=== PATIENT | male | born 1995 | race Caucasian/White ===

== ENCOUNTER 2021-02-25 07:21 | Outpatient (CLI) | payer BC ==
[2021-02-25 09:21] LABS: BASOPHILS % (AUTO) 0.5 % (0-1); EOSINOPHILS # (AUTO) 0.2 X10'3 (0-0.9); EOSINOPHILS % (AUTO) 2.5 % (0-6); HEMATOCRIT 46.6 % (42.0-52.0); HEMOGLOBIN 15.9 g/dl (14.0-17.9); LYMPHOCYTES % (AUTO) 31.7 % (21-51); MEAN CORPUSCULAR HEMOGLOBIN 30.3 PG (27.0-31.0); MEAN CORPUSCULAR HGB CONC 34.2 g/dL (33.0-36.5); MEAN CORPUSCULAR VOLUME 88.7 FL (78-98); MONOCYTES # (AUTO) 0.5 X10'3 (0-0.9); MONOCYTES % (AUTO) 7.3 % (2-12); NEUTROPHILS # (AUTO) 3.7 X10'3 (1.8-7.7); PLATELET COUNT 238 X10'3 (140-440); RED BLOOD COUNT 5.25 X10'6 (4.70-6.10); RED CELL DISTRIBUTION WIDTH 13.1 % (11.5-14.5); WHITE BLOOD COUNT 6.3 X10'3 (4.5-11.0)
[2021-02-25 09:33] LABS: ALANINE AMINOTRANSFERASE 25 U/L (12-78); ALBUMIN 4.6 G/DL (3.4-5.0); ALBUMIN/GLOBULIN RATIO 1.4 (1.1-1.5); ALKALINE PHOSPHATASE 86 IU/L (46-116); ANION GAP 9 (8-16); ASPARTATE AMINO TRANSFERASE 15 U/L (10-37); BILIRUBIN,TOTAL 0.5 MG/DL (0.1-1.0); BLOOD UREA NITROGEN 14 MG/DL (7-18); BUN/CREATININE RATIO 14.1 (5.4-32.0); CALCIUM 9.2 MG/DL (8.5-10.1); CHLORIDE 106 MMOL/L (99-107); CREATININE 0.99 MG/DL (0.60-1.10); GLUCOSE 93 MG/DL (70-104); POTASSIUM 4.2 MMOL/L (3.5-5.1); SODIUM 142 MMOL/L (135-145); TOTAL CARBON DIOXIDE 27.5 MMOL/L (24-32); eGFR > 90 ML/MIN
[2021-02-25 10:38] LABS: RHEUM FACTOR QUAL REFLEX TITER NEGATIVE (Neg)
[2021-02-26 11:22] LABS: ANTI-DSDNA ANTIBODIES <1 IU/mL (0-9); ANTINUCLEAR ANTIBODIES Negative (Negative); COMPLEMENT C3, SERUM 117 mg/dL (82-167); COMPLEMENT C4, SERUM 17 mg/dL (12-38); THYROID PEROXIDASE AB 9 IU/mL (0-34)
== END 2021-02-25 23:59 | disposition home or self-care (01) ==
LOC: RAD 07:21
PROVIDERS: ATTEND Family Medicine
DX: N13.2 Hydronephrosis with renal and ureteral calculous obstruction (principal); R10.9 Unspecified abdominal pain; R06.02 Shortness of breath; R82.998 Other abnormal findings in urine
CPT/HCPCS: 36415; 76700; 76857; 80053; 85025; 86038; 86160; 86200; 86235; 86256; 86376; 86430; 88271; 88275

== ENCOUNTER 2021-03-27 06:29 | Inpatient (IN) | payer BC ==
[~2021-03-27] VITALS: Ht 177.8 cm; Wt 90.9 kg
[2021-03-27 09:01] LABS: CLARITY,URINE CLEAR (Clear); COLOR,URINE YELLOW (Yellow); GLUCOSE, URINE NEGATIVE (Neg); KETONES,URINE NEGATIVE (Neg); LEUKOCYTE ESTERASE ,URINE NEGATIVE (Neg); NITRITES, URINE NEGATIVE (Neg); OCCULT BLOOD,URINE LARGE (Neg); PROTEIN,URINE 100 mg/dl (Neg); UA COLLECTION TYPE VOIDED; UROBILINOGEN,URINE 0.2 E.U/dL (0.2-1.0)
[2021-03-27 09:07] LABS: BACTERIA,URINE NONE SEEN /HPF (Neg); MUCUS STRANDS NONE SEEN /LPF (Neg); SQUAMOUS EPITHELIAL CELL,UR NONE SEEN /LPF (FEW); WBC,URINE 0-4 /HPF (0-4)
[2021-03-27 10:26] LABS: ALANINE AMINOTRANSFERASE 432 U/L (12-78); ALBUMIN 4.4 G/DL (3.4-5.0); ALBUMIN/GLOBULIN RATIO 1.3 (1.1-1.5); ALKALINE PHOSPHATASE 89 IU/L (46-116); ANION GAP 10 (8-16); BILIRUBIN,TOTAL 1.2 MG/DL (0.1-1.0); BLOOD UREA NITROGEN 16 MG/DL (7-18); BUN/CREATININE RATIO 16.2 (5.4-32.0); CALCIUM 9.3 MG/DL (8.5-10.1); CHLORIDE 104 MMOL/L (99-107); CREATININE 0.99 MG/DL (0.60-1.10); GLUCOSE 82 MG/DL (70-104); POTASSIUM 4.3 MMOL/L (3.5-5.1); SODIUM 140 MMOL/L (135-145); TOTAL CARBON DIOXIDE 25.6 MMOL/L (24-32); TOTAL PROTEIN 7.9 G/DL (6.4-8.2); eGFR > 90 ML/MIN
[2021-03-27 10:29] LABS: BASOPHILS % (AUTO) 0.3 % (0-1); EOSINOPHILS # (AUTO) 0.1 X10'3 (0-0.9); EOSINOPHILS % (AUTO) 0.8 % (0-6); HEMATOCRIT 45.8 % (42.0-52.0); HEMOGLOBIN 16.1 g/dl (14.0-17.9); LYMPHOCYTES % (AUTO) 26.7 % (21-51); MEAN CORPUSCULAR HEMOGLOBIN 30.5 PG (27.0-31.0); MEAN CORPUSCULAR HGB CONC 35.1 g/dL (33.0-36.5); MEAN CORPUSCULAR VOLUME 86.8 FL (78-98); MEAN PLATELET VOLUME 9.3 FL (7.4-10.4); MONOCYTES # (AUTO) 0.8 X10'3 (0-0.9); MONOCYTES % (AUTO) 10.3 % (2-12); NEUTROPHILS # (AUTO) 4.7 X10'3 (1.8-7.7); NEUTROPHILS % (AUTO) 61.9 % (42-75); PLATELET COUNT 202 X10'3 (140-440); RED BLOOD COUNT 5.28 X10'6 (4.70-6.10); RED CELL DISTRIBUTION WIDTH 12.9 % (11.5-14.5); WHITE BLOOD COUNT 7.7 X10'3 (4.5-11.0)
[2021-03-27 11:02] LABS: ASPARTATE AMINO TRANSFERASE 1178 U/L (10-37); CREATINE KINASE 57177 U/L (39-308)
[2021-03-27] MEDS ORDERED: normal saline 1000ML IV soln IVB ONE (11:10)
--- NOTE | 2021-03-27 11:10 | NUR ---
Pt is awake and alert. C/O pain in B biceps area.
[2021-03-27] MEDS ORDERED: ondansetron/PF 4mg/2ml inj IV PRN (11:40)
[2021-03-27] MEDS ORDERED: mag hydrox/Alum hydrox/simeth 30ml oral suspension PO PRN (11:40)
[2021-03-27] MEDS ORDERED: traMADol 50MG tablet PO PRN (11:40)
[2021-03-27] MEDS ORDERED: HYDROcodone/acetaminophen 5mg/325mg tablet PO PRN (11:40)
[2021-03-27] MEDS ORDERED: morphine 2 MG/ML inj. syringe IV PRN (11:40)
[2021-03-27] MEDS ORDERED: magnesium hydroxide 30ml (MOM) UD suspension PO PRN (11:40)
[2021-03-27] MEDS ORDERED: acetaminophen 325mg tablet PO PRN ×2 (11:40)
[2021-03-27] MEDS: normal saline 1000ml 1,000 ML IV SCH ×2 (12:15→22:27)
[2021-03-27] MEDS: morphine 2 MG/ML inj. syringe IV PRN ×3 (12:31→22:21)
[2021-03-27 18:00] VITALS: BP 153/75
--- NOTE | 2021-03-27 19:19 | NUR ---
Report given to LUAN Aguilar on the Surg floor.
[2021-03-27] MEDS: docusate sod 100mg capsule PO SCH (20:44)
[2021-03-28 00:11] VITALS: BP 125/79
[2021-03-28] MEDS: morphine 2 MG/ML inj. syringe IV PRN ×3 (03:02→22:36)
[2021-03-28 06:40] LABS: BASOPHILS % (AUTO) 0.4 % (0-1); EOSINOPHILS # (AUTO) 0.1 X10'3 (0-0.9); EOSINOPHILS % (AUTO) 1.4 % (0-6); HEMATOCRIT 42.7 % (42.0-52.0); HEMOGLOBIN 14.5 g/dl (14.0-17.9); LYMPHOCYTES # (AUTO) 1.9 X10'3 (1.1-4.8); LYMPHOCYTES % (AUTO) 29.5 % (21-51); MEAN CORPUSCULAR HEMOGLOBIN 30.3 PG (27.0-31.0); MEAN CORPUSCULAR VOLUME 89.2 FL (78-98); MEAN PLATELET VOLUME 9.5 FL (7.4-10.4); MONOCYTES # (AUTO) 0.8 X10'3 (0-0.9); MONOCYTES % (AUTO) 11.8 % (2-12); NEUTROPHILS # (AUTO) 3.6 X10'3 (1.8-7.7); NEUTROPHILS % (AUTO) 56.9 % (42-75); PLATELET COUNT 190 X10'3 (140-440); RED BLOOD COUNT 4.78 X10'6 (4.70-6.10); RED CELL DISTRIBUTION WIDTH 12.6 % (11.5-14.5); WHITE BLOOD COUNT 6.4 X10'3 (4.5-11.0)
--- NOTE | 2021-03-28 06:43 | NUR ---
I have received report from Jeff ROLAND and had the opportunity to ask questions and assume patient care.
[2021-03-28 07:24] LABS: ALANINE AMINOTRANSFERASE 404 U/L (12-78); ALBUMIN 3.7 G/DL (3.4-5.0); ALBUMIN/GLOBULIN RATIO 1.1 (1.1-1.5); ALKALINE PHOSPHATASE 80 IU/L (46-116); ANION GAP 11 (8-16); BLOOD UREA NITROGEN 12 MG/DL (7-18); BUN/CREATININE RATIO 12.5 (5.4-32.0); CHLORIDE 107 MMOL/L (99-107); CREATININE 0.96 MG/DL (0.60-1.10); GLUCOSE 82 MG/DL (70-104); POTASSIUM 4.1 MMOL/L (3.5-5.1); SODIUM 144 MMOL/L (135-145); TOTAL PROTEIN 7.2 G/DL (6.4-8.2); eGFR > 90 ML/MIN
[2021-03-28] MEDS: normal saline 1000ml 1,000 ML IV SCH ×2 (07:40→15:20)
[2021-03-28 07:43] LABS: CREATINE KINASE 69056 U/L (39-308)
[2021-03-28 07:44] LABS: ASPARTATE AMINO TRANSFERASE 1209 U/L (10-37)
[2021-03-28 08:00] VITALS: BP 137/77
[2021-03-28] MEDS: docusate sod 100mg capsule PO SCH ×2 (09:09→19:50)
[2021-03-28 11:00] VITALS: BP 142/86
[2021-03-28 18:00] VITALS: BP 161/95
[2021-03-28 18:05] VITALS: BP 153/99
--- NOTE | 2021-03-28 18:59 | NUR ---
Patient in room [facility]. I have received report from Shannen ROLAND and had the opportunity to ask questions and assume patient care.
[2021-03-29 01:40] VITALS: BP 156/75
[2021-03-29] MEDS: normal saline 1000ml 1,000 ML IV SCH ×2 (03:40→10:58)
[2021-03-29 06:49] LABS: BASOPHILS % (AUTO) 0.2 % (0-1); EOSINOPHILS # (AUTO) 0.1 X10'3 (0-0.9); EOSINOPHILS % (AUTO) 1.1 % (0-6); HEMATOCRIT 42.7 % (42.0-52.0); HEMOGLOBIN 14.8 g/dl (14.0-17.9); LYMPHOCYTES % (AUTO) 23.7 % (21-51); MEAN CORPUSCULAR HEMOGLOBIN 30.3 PG (27.0-31.0); MEAN CORPUSCULAR HGB CONC 34.7 g/dL (33.0-36.5); MEAN CORPUSCULAR VOLUME 87.2 FL (78-98); MEAN PLATELET VOLUME 8.9 FL (7.4-10.4); MONOCYTES # (AUTO) 0.8 X10'3 (0-0.9); MONOCYTES % (AUTO) 8.9 % (2-12); NEUTROPHILS # (AUTO) 5.7 X10'3 (1.8-7.7); NEUTROPHILS % (AUTO) 66.1 % (42-75); PLATELET COUNT 212 X10'3 (140-440); RED CELL DISTRIBUTION WIDTH 12.7 % (11.5-14.5); WHITE BLOOD COUNT 8.6 X10'3 (4.5-11.0)
--- NOTE | 2021-03-29 06:56 | NUR ---
Problems reprioritized. Patient report given, questions answered & plan of care reviewed with Anastasiya ROLAND.
[2021-03-29 07:00] VITALS: BP 133/48
[2021-03-29 07:08] LABS: ALANINE AMINOTRANSFERASE 426 U/L (12-78); ALBUMIN/GLOBULIN RATIO 1.2 (1.1-1.5); ALKALINE PHOSPHATASE 86 IU/L (46-116); ANION GAP 4 (8-16); ASPARTATE AMINO TRANSFERASE 930 U/L (10-37); BILIRUBIN,TOTAL 0.9 MG/DL (0.1-1.0); BLOOD UREA NITROGEN 12 MG/DL (7-18); CALCIUM 9.5 MG/DL (8.5-10.1); CHLORIDE 105 MMOL/L (99-107); GLUCOSE 86 MG/DL (70-104); POTASSIUM 3.9 MMOL/L (3.5-5.1); SODIUM 137 MMOL/L (135-145); TOTAL CARBON DIOXIDE 27.7 MMOL/L (24-32); TOTAL PROTEIN 7.3 G/DL (6.4-8.2); eGFR 90 ML/MIN
[2021-03-29 07:22] LABS: CREATINE KINASE 44848 U/L (39-308)
[2021-03-29] MEDS: docusate sod 100mg capsule PO SCH (07:33)
[2021-03-29 10:53] VITALS: BP 118/72
[2021-03-29] MEDS ORDERED: HYDR-3965 PO (11:30)
--- NOTE | 2021-03-29 12:20 | NUR ---
Patient discharge reviewed with patient. Patient verbalized understanding. Patient IV DC cannula intact. Patient states he has all of his belongings. Patient taken to vehicle in wheelchair where family was waiting to transport him home.
== END 2021-03-29 12:47 | disposition home or self-care (01) | DRG 558 ==
LOC: ER 06:30 → ED HOLD 11:42 → SUR 3N 19:30
PROVIDERS: ADMIT Internal Medicine; ATTEND Internal Medicine
DX: M62.82 Rhabdomyolysis (principal); F12.90 Cannabis use, unspecified, uncomplicated; R31.9 Hematuria, unspecified; R74.01 Elevation of levels of liver transaminase levels; R74.8 Abnormal levels of other serum enzymes; Z88.2 Allergy status to sulfonamides
CPT/HCPCS: 36415; 80053; 81001; 82550; 85025; 87081; 99285; G0378; J2270; J2405; J7030

== ENCOUNTER 2021-03-30 12:13 | Outpatient (CLI) | payer BC ==
[~2021-03-30 12:13] MED LIST: HYDR-3965 PO
[2021-03-30 13:41] LABS: ALANINE AMINOTRANSFERASE 413 U/L (12-78); ALBUMIN 4.1 G/DL (3.4-5.0); ALBUMIN/GLOBULIN RATIO 1.1 (1.1-1.5); ALKALINE PHOSPHATASE 94 IU/L (46-116); ANION GAP 8 (8-16); ASPARTATE AMINO TRANSFERASE 607 U/L (10-37); BILIRUBIN,TOTAL 0.6 MG/DL (0.1-1.0); BLOOD UREA NITROGEN 17 MG/DL (7-18); BUN/CREATININE RATIO 17.3 (5.4-32.0); CALCIUM 9.8 MG/DL (8.5-10.1); CHLORIDE 104 MMOL/L (99-107); CREATININE 0.98 MG/DL (0.60-1.10); GLUCOSE 77 MG/DL (70-104); SODIUM 140 MMOL/L (135-145); TOTAL CARBON DIOXIDE 28.3 MMOL/L (24-32); TOTAL PROTEIN 7.7 G/DL (6.4-8.2); eGFR > 90 ML/MIN
[2021-03-30 14:25] LABS: CREATINE KINASE 16413 U/L (39-308)
== END 2021-03-30 23:59 | disposition home or self-care (01) ==
LOC: LAB 12:13
PROVIDERS: ATTEND Family Medicine
DX: M62.82 Rhabdomyolysis (principal)
CPT/HCPCS: 36415; 80053; 82550

== ENCOUNTER 2021-04-06 14:48 | Outpatient (CLI) | payer BC ==
[2021-04-06 15:33] LABS: ALANINE AMINOTRANSFERASE 99 U/L (12-78); ALBUMIN 4.1 G/DL (3.4-5.0); ALBUMIN/GLOBULIN RATIO 1.2 (1.1-1.5); ALKALINE PHOSPHATASE 83 IU/L (46-116); ANION GAP 9 (8-16); ASPARTATE AMINO TRANSFERASE 26 U/L (10-37); BILIRUBIN,TOTAL 0.3 MG/DL (0.1-1.0); BLOOD UREA NITROGEN 17 MG/DL (7-18); BUN/CREATININE RATIO 17.5 (5.4-32.0); CALCIUM 9.2 MG/DL (8.5-10.1); CHLORIDE 105 MMOL/L (99-107); CREATINE KINASE 186 U/L (39-308); CREATININE 0.97 MG/DL (0.60-1.10); GLUCOSE 88 MG/DL (70-104); POTASSIUM 4.7 MMOL/L (3.5-5.1); SODIUM 143 MMOL/L (135-145); TOTAL CARBON DIOXIDE 29.3 MMOL/L (24-32); TOTAL PROTEIN 7.6 G/DL (6.4-8.2); eGFR > 90 ML/MIN
== END 2021-04-06 23:59 | disposition home or self-care (01) ==
LOC: LAB 14:48
PROVIDERS: ATTEND Family Medicine
DX: M62.82 Rhabdomyolysis (principal)
CPT/HCPCS: 36415; 80053; 82550

== ENCOUNTER 2021-05-23 16:28 | Emergency (ER) | payer BC ==
[~2021-05-23] VITALS: Ht 172.7 cm; Wt 93.0 kg
[2021-05-23 16:43] VITALS: BP 145/55
[2021-05-23] MEDS ORDERED: normal saline 1000ML IV soln IVB ONE (17:10)
[2021-05-23] MEDS ORDERED: ketorolac tromethamine 15mg/ml inj. IV ONE (17:10)
[2021-05-23] MEDS ORDERED: ondansetron/PF 4mg/2ml inj IV ONE (17:10)
[2021-05-23 17:26] LABS: BASOPHILS % (AUTO) 0.2 % (0-1); EOSINOPHILS % (AUTO) 0.4 % (0-6); HEMATOCRIT 40.2 % (42.0-52.0); HEMOGLOBIN 14.1 g/dl (14.0-17.9); LYMPHOCYTES # (AUTO) 1.7 X10'3 (1.1-4.8); LYMPHOCYTES % (AUTO) 15.6 % (21-51); MEAN CORPUSCULAR HEMOGLOBIN 30.6 PG (27.0-31.0); MEAN CORPUSCULAR HGB CONC 35.1 g/dL (33.0-36.5); MEAN CORPUSCULAR VOLUME 87.4 FL (78-98); MEAN PLATELET VOLUME 8.7 FL (7.4-10.4); MONOCYTES # (AUTO) 0.6 X10'3 (0-0.9); NEUTROPHILS # (AUTO) 8.3 X10'3 (1.8-7.7); NEUTROPHILS % (AUTO) 77.8 % (42-75); PLATELET COUNT 208 X10'3 (140-440); RED CELL DISTRIBUTION WIDTH 12.9 % (11.5-14.5); WHITE BLOOD COUNT 10.7 X10'3 (4.5-11.0)
[2021-05-23 17:40] LABS: ALANINE AMINOTRANSFERASE 30 U/L (12-78); ALBUMIN 4.2 G/DL (3.4-5.0); ALBUMIN/GLOBULIN RATIO 1.4 (1.1-1.5); ALKALINE PHOSPHATASE 62 IU/L (46-116); ANION GAP 10 (8-16); ASPARTATE AMINO TRANSFERASE 25 U/L (10-37); BILIRUBIN,TOTAL 0.5 MG/DL (0.1-1.0); BLOOD UREA NITROGEN 14 MG/DL (7-18); BUN/CREATININE RATIO 12.6 (5.4-32.0); CHLORIDE 106 MMOL/L (99-107); CREATININE 1.11 MG/DL (0.60-1.10); GLUCOSE 102 MG/DL (70-104); LIPASE 94 U/L (73-393); POTASSIUM 3.7 MMOL/L (3.5-5.1); SODIUM 143 MMOL/L (135-145); TOTAL CARBON DIOXIDE 26.9 MMOL/L (24-32); TOTAL PROTEIN 7.3 G/DL (6.4-8.2); eGFR 79 ML/MIN
[2021-05-23] MEDS ORDERED: morphine 4 MG/ML inj SYRINge IV ONE (17:55)
[2021-05-23] MEDS ORDERED: metoclopramide 5 mg/ml inj IV ONE (17:55)
[2021-05-23 18:43] LABS: CLARITY,URINE CLEAR (Clear); COLOR,URINE YELLOW (Yellow); UA COLLECTION TYPE CLN CATCH MIDSTREAM
[2021-05-23 18:44] LABS: GLUCOSE, URINE NEGATIVE (Neg); KETONES,URINE NEGATIVE (Neg); LEUKOCYTE ESTERASE ,URINE NEGATIVE (Neg); NITRITES, URINE NEGATIVE (Neg); OCCULT BLOOD,URINE NEGATIVE (Neg); PROTEIN,URINE NEGATIVE (Neg); UROBILINOGEN,URINE 0.2 E.U/dL (0.2-1.0)
== END 2021-05-23 19:23 | disposition home or self-care (01) ==
LOC: ER 16:29
DX: R10.30 Lower abdominal pain, unspecified (principal); R11.0 Nausea; Z88.2 Allergy status to sulfonamides
CPT/HCPCS: 36415; 74176; 80053; 81003; 83690; 85025; 96374; 96375; 99284; J1885; J2405; J7030

== ENCOUNTER 2023-11-15 12:45 | Outpatient (CLI) | payer BC | END 2023-11-15 23:59 | disposition home or self-care (01) | LOC: LAB 12:45 | PROVIDERS: ATTEND Student in an Organized Health Care Education/Training Program | DX: R05.8 Other specified cough (principal); R50.9 Fever, unspecified | CPT/HCPCS: 71046 ==